=== PATIENT | female | born 2000 | race Caucasian/White ===

== ENCOUNTER → 2020-10-07 15:24 | Outpatient (CLI) | payer MEDICAID, SELFPAY ==
[2018-10-12 10:09] VITALS: BMI 29.8
[2020-10-07 18:27] LABS: Hemoglobin A1c 5.2 % (3.8-5.6)
== END ==
PROVIDERS: PCP Family Medicine; Referring Provider Dermatology; Visit Provider Dermatology
DX: L30.9 Dermatitis, unspecified (principal)
CPT/HCPCS: 36415; 83036

== ENCOUNTER 2024-06-19 14:30 | Outpatient (CLI) | payer OTHER, SELFPAY ==
[2024-06-19 16:49] VITALS: BMI 41.9
[2024-06-19 16:56] VITALS: PULSE 121; RESP 16; TEMP 37; O2SAT 98
[2024-06-19 16:58] VITALS: BP 164/90; PULSE 112
[2024-06-19 16:59] VITALS: BP 143/71; PULSE 106
--- NOTE | 2024-06-19 18:23 | OB.TRI.NOTE ---
HPI - General General Date of Admission: 06/19/24 Date of Service: 06/19/24 Chief Complaint: bleeding HPI Narrative BEATRIZ OLSEN, is a 24 F who presents blood in toilet and with wiping x 1 at 1600. No pain no continued bleeding. No blood on spec exam. Likely ruptured hemorrhoid. Cat I tracing and closed cervix. Has appt on Tuesday. Maternal Data Information Gestational age: 34+3 [facility] Medical History (Updated 06/19/24 @ 18:[address] Lianet Jarquin MD) Headaches, cluster Home Medications ?Medication ?Instructions ?Recorded ?Last Taken ?Type aspirin 81 mg capsule 162 mg PO DAILY 06/19/24 06/18/24 21:00 History 162 mg vit no.95-ferrous 1 tab PO DAILY 06/19/24 06/18/24 21:00 History fumarate 28 mg-folic acid 800 mcg 1 TAB tablet ( Multivitamins) Allergy/AdvReac Type Severity Reaction Status Date / Time No Known Allergies Allergy Verified 06/19/24 16:47 Family History Other Depression Hypertension Thyroid disorder Social History Smoking Status: Never smoker alcohol intake: never substance use type: does not use what type of physical activity do you participate in: yoga frequency: 1-2 times per week Physical Exam External Female Exam: normal appearance of the urethra Speculum Exam - Vagina: Negative for vaginal lesion, vaginal bleeding or vaginal discharge Speculum Exam - Cervix: Negative for cervical os open or cervical bleeding Psych mental status grossly normal NST FHR Rate Baby A Variability:: Moderate Accelerations:: 15 x 15 Decelerations:: None NST Reactive:: Yes FHR Category:: Category I Uterine Activity:: none Assessment & Plan (1) Vaginal bleeding during : (2) 34 weeks gestation of : PLAN: No bleeding found
== END 2024-06-19 18:25 | disposition home or self-care (01) ==
LOC: WPOUT 16:36 → WP 16:37
PROVIDERS: PCP Family Medicine; Referring Provider Obstetrics & Gynecology; Visit Provider Obstetrics & Gynecology
DX: O46.93 Antepartum hemorrhage, unspecified, third trimester (principal); Z79.82 Long term (current) use of aspirin; Z3A.34 34 weeks gestation of pregnancy
CPT/HCPCS: 59025; 59050; 99221; G0378

== ENCOUNTER 2024-07-10 19:18 | Inpatient (IN) | payer OTHER, SELFPAY ==
[2024-07-10 19:13] VITALS: BMI 41.8
[2024-07-10 19:34] VITALS: BP 144/84; PULSE 121; RESP 16; TEMP 36.8
[2024-07-10 19:50] LABS: Absolute Lymphocyte Count 1.59 X10^3/uL (0.83-4.51); Absolute Neutrophil Count 6.3 X10^3/uL (2.0-7.7); Basophil# 0.02 X10^3/uL; Basophil% 0.2 % (0-1); Eosinophil# 0.05 X10^3/uL; Eosinophils% 0.6 % (0-5); Hematocrit 34.8 % (37-47); Lymphocyte # 1.59 X10^3/ul (0.83-4.51); Lymphocyte % 18.2 % (19-41); Mean Corp Hgb Conc 31.6 g/dL (32-36); Mean Corpuscular Hgb 27.2 pg (27.0-32.0); Mean Corpuscular Volume 86.1 fL (81-99); Mean Platelet Vol. 11.1 fl (6.2-12.0); NRBC Flagged by Analyzer 0.3 % (0-5); Neutrophil # 6.33 X10^3/uL (2.7-7.7); Neutrophil % 72.2 % (47-70); Platelet Count 308 K/mm3 (150-450); RBC Distribution Width SD 43.5 fl (35.1-43.9); Red Blood Count 4.04 M/mm3 (4.2-5.4); White Blood Count 8.8 K/mm3 (4.4-11.0)
[2024-07-10 20:35] LABS: Bedside Glucose 130 mg/dL (74-106)
[2024-07-10] MEDS: Lactated Ringers 1,000 ML 50 ML IV (20:35)
[2024-07-10] MEDS: Oxytocin 15 Units/NS 250ml 15 UNITS/250 ML IV.SOLN 2 UNITS IV (20:42)
--- NOTE | 2024-07-10 20:46 | HP.PCM.OB_ITS ---
HPI - General General Date of Admission: 07/10/24 Date of Service: 07/10/24 Chief Complaint: preeclampsia HPI Narrative BEATRIZ OLSEN, is a 24 F who presents for induction of labor due to diagnosis of preeclampsia. Blood pressures have been mildly elevated during much of her . She has no diagnosis of chronic hypertension but there is a suspicion that she may have underlying chronic hypertension. She had preeclampsia labs yesterday and was found to have an elevated protein curried to creatinine ratio. Last week the ratio was normal. She denies any headache or visual changes. She has had good movement. No regular contractions. No gross vaginal bleeding or leaking of fluid. has been complicated to date by maternal obesity and her prepregnancy BMI was 37.8 She is also had gestational diabetes that is been fairly well-controlled but her fasting blood sugars have been trending up over the last couple of weeks. Maternal Data Information Final DAVID: 07/28/24 Gestational age: 37 3/7 [facility] Medical History (Updated 07/10/24 @ 20:[address] Tarah Rosas MD) Pre-eclampsia Gestational diabetes Headaches, cluster Home Medications ?Medication ?Instructions ?Recorded ?Last Taken ?Type aspirin 81 mg capsule 162 mg PO DAILY 06/19/24 07/10/24 08:00 History vit no.95-ferrous 1 tab PO DAILY supplement 06/19/24 07/09/24 08:00 History fumarate 28 mg-folic acid 800 mcg tablet ( Multivitamins) Allergy/AdvReac Type Severity Reaction Status Date / Time No Known Allergies Allergy Verified 07/10/24 19:53 Family History Other Depression Hypertension Thyroid disorder Social History Smoking Status: Never smoker alcohol intake: never substance use type: does not use what type of physical activity do you participate in: yoga frequency: 1-2 times per week History Elective abortions Hx Para 0 Spontaneous abortions Hx # Term Pregnancies Ectopic pregnancies Hx # Pregnancies Multiple births # of living children ROS Constitutional Constitutional: Denies fatigue, fever(s) or malaise Eyes Eyes: Denies change in vision ENT HEENT: Denies dizziness or headache(s) Cardiovascular Cardiovascular: Denies chest pain, dyspnea or lightheadedness Respiratory/Chest Respiratory/Chest: Denies cough or dyspnea Gastrointestinal Gastrointestinal: Denies change in bowel habits Genitourinary Genitourinary: Denies burning urination or genital lesions Integumentary Integumentary: Denies rash Neurologic Neurologic: Denies confusion, dizziness, headache(s), numbness or weakness Vital Signs Vital Signs Vital Signs: 07/10/24 19:34 07/10/24 19:34 07/10/24 19:34 Temperature Temperature Source Temporal Pulse Rate 121 H Respiratory Rate Blood Pressure 144/84 H BP Systolic 144 BP Diastolic 84 07/10/24 19:34 07/10/24 19:34 Temperature 98.2 F Temperature Source Pulse Rate Respiratory Rate 16 Blood Pressure BP Systolic BP Diastolic Weight Weight: 117.7 kg Body Mass Index (BMI) 41.8 Physical Exam Narrative 1+ edema, 2+ DTrs, no clonus Const alert and no apparent distress General Appearance: cooperative HEENT normocephalic Resp normal respiratory effort Cardio regular rate GI soft to palpation GI Narrative: gravid, nontender, appropriate for gestational age Extremity no calf tenderness General Extremity: edema Skin no wounds Rashes: No rashes noted Psych activity/motor behavior normal Labs Labs Labs: Blood Type O POSITIVE Antibody Screen NEGATIVE Hct 34.8 % (37-47) L Hgb 11.0 g/dL (12.0-15.0) L Syphilis Total Ab Pending Assessment & Plan (1) Pre-eclampsia: QUALIFIERS: Trimester: third trimester Qualified Code(s): O14.93 - Unspecified pre-eclampsia, third trimester PLAN: High risk [place] parous patient at 37-3/7 weeks gestation with diagnosis of preeclampsia without severe features. Will monitor blood pressures closely. Estimated weight is approximately 4000 g and pelvis clinically adequate to expect vaginal delivery. Patient cervix is 3-1/2 cm, 60% effaced, -2 station. Head is well applied. At the posterior and medium consistency. Will initiate Pitocin induction of labor. May have routine pain control measures as needed and as indicated. Will monitor blood sugars and blood pressures and initiate treatments as needed. (2) 37 weeks gestation of : (3) Gestational diabetes, diet controlled: QUALIFIERS: Trimester: third trimester Qualified Code(s): O24.410 - Gestational diabetes mellitus in , diet controlled (4) Maternal obesity syndrome in third trimester:
[2024-07-10 20:48] VITALS: BP 136/69; PULSE 118; RESP 16; O2SAT 98
[2024-07-10 22:03] LABS: Bedside Glucose 104 mg/dL (74-106)
[2024-07-10 22:22] VITALS: BP 121/72; PULSE 100; RESP 16; TEMP 36.2
[2024-07-10 23:07] LABS: Bedside Glucose 90 mg/dL (74-106)
[2024-07-10 23:08] LABS: Syphilis Antibodies Non-reactive
[2024-07-10 23:42] VITALS: BP 112/67; PULSE 91; RESP 16
[2024-07-11] VITALS (57 sets, daily range): BP systolic 104–142; BP diastolic 55–80; PULSE 80–211; RESP 16; TEMP 36.3–37.2; O2SAT 90–100
[2024-07-11 03:07] LABS: Bedside Glucose 107 mg/dL (74-106)
[2024-07-11] MEDS: Acetaminophen 500 MG Tablet PO ×3 (05:14→19:31)
[2024-07-11 07:04] LABS: Bedside Glucose 107 mg/dL (74-106)
--- NOTE | 2024-07-11 09:06 | PCM.PN.OB ---
Subjective Subjective AROM for clear fluid. IUPC and FSE placed. 480/-2 Objective Data Objective Data Vital Signs: Vital Signs Temp Pulse Resp BP Pulse Ox 97.6 F L 80 16 139/78 H 97 07/11/24 07:39 07/11/24 07:41 07/11/24 07:39 07/11/24 07:40 07/11/24 07:40 Weight: 117.7 kg Body Mass Index (BMI) 41.8 Intake & Output: Intake and Output for Last 24 Hours 07/09/24 07/10/24 07/11/24 23:59 23:59 23:59 Intake Total 12.9 / 12.9 67.77 / 67.77 Output Total 500 / 500 Balance 12.9 / 12.9 -432.23 / -432.23 Lab / Micro Data 07/10/24 19:30 Labs: Laboratory Results - last 24 hr 07/10/24 19:30: WBC 8.8, RBC 4.04 L, Hgb 11.0 L, Hct 34.8 L, MCV 86.1, MCH 27.2, MCHC 31.6 L, RDW Std Deviation 43.5, RDW Coeff of Jai 14.0, Plt Count 308, MPV 11.1, Immature Gran % (Auto) 0.800, Neut % (Auto) 72.2 H, Lymph % (Auto) 18.2 L, Grant % (Auto) 8.0, Eos % (Auto) 0.6, Baso % (Auto) 0.2, Absolute Neuts (auto) 6.3, Absolute Lymphs (auto) 1.59, Nucleated RBC % 0.3, Syphilis Total Ab Non-reactive, Blood Type O POSITIVE, Antibody Screen NEGATIVE 07/10/24 20:14: POC Glucose 130 H 07/10/24 21:32: POC Glucose 104 07/10/24 22:29: POC Glucose 90 07/11/24 02:31: POC Glucose 107 H 07/11/24 04:55: POC Glucose 107 H Assessment & Plan (1) Maternal obesity syndrome in third trimester: (2) Pre-eclampsia: QUALIFIERS: Trimester: third trimester Qualified Code(s): O14.93 - Unspecified pre-eclampsia, third trimester (3) 37 weeks gestation of : (4) Gestational diabetes, diet controlled: QUALIFIERS: Trimester: third trimester Qualified Code(s): O24.410 - Gestational diabetes mellitus in , diet controlled
[2024-07-11 09:43] LABS: Bedside Glucose 98 mg/dL (74-106)
[2024-07-11] MEDS: Lactated Ringers 1,000 ML 999 ML IV (11:10)
[2024-07-11] MEDS: Lactated Ringers 1,000 ML 200 ML IV ×3 (12:16→22:11)
[2024-07-11] MEDS: fentaNYL-bupivacaine (epidural) 100 ML BAG EPIDURAL ×3 (12:16→21:43)
[2024-07-11] MEDS: Ondansetron 4 MG/2 ML Vial IV ×2 (13:30→18:07)
[2024-07-11 15:08] LABS: Bedside Glucose 69 mg/dL (74-106)
[2024-07-11 15:08] LABS: Bedside Glucose 67 mg/dL (74-106)
[2024-07-11 15:08] LABS: Bedside Glucose 98 mg/dL (74-106)
[2024-07-11 16:24] LABS: Bedside Glucose 98 mg/dL (74-106)
[2024-07-11 17:55] LABS: Bedside Glucose 82 mg/dL (74-106)
[2024-07-11 18:38] LABS: Bedside Glucose 75 mg/dL (74-106)
[2024-07-11 19:46] LABS: Bedside Glucose 71 mg/dL (74-106)
[2024-07-11] MEDS: Oxytocin 15 Units/NS 250ml 15 UNITS/250 ML IV.SOLN 20 UNITS IV (20:58)
[2024-07-11 20:59] LABS: Bedside Glucose 80 mg/dL (74-106)
[2024-07-11 21:58] LABS: Bedside Glucose 88 mg/dL (74-106)
[2024-07-11 23:01] LABS: Bedside Glucose 94 mg/dL (74-106)
[2024-07-12] VITALS (31 sets, daily range): BP systolic 111–143; BP diastolic 62–90; PULSE 88–135; RESP 15–25; TEMP 36.1–37.4; O2SAT 95–100
[2024-07-12 00:26] LABS: Bedside Glucose 104 mg/dL (74-106)
[2024-07-12] MEDS: Ondansetron 4 MG/2 ML Vial IV (01:24)
--- NOTE | 2024-07-12 02:32 | PCM.PN.OB ---
Subjective Subjective Patient complete and pushing for 2.5 hours. Very little progress with adequate maternal effort. Cat I-II. Discussed with patient R/B/A to primary c/s. She is agreeable. ANcef and azithromycin ordered. Objective Data Objective Data Vital Signs: Vital Signs Temp Pulse Resp BP Pulse Ox 98.7 F 88 16 117/77 99 07/12/24 02:17 07/12/24 01:06 07/12/24 02:17 07/12/24 02:18 07/12/24 01:06 Weight: 117.7 kg Body Mass Index (BMI) 41.8 Intake & Output: Intake and Output for Last 24 Hours 07/10/24 07/11/24 07/12/24 23:59 23:59 23:59 Intake Total 12.9 / 12.9 3953.44 / 3953.44 Output Total 1300 / 1300 600 / 600 Balance 12.9 / 12.9 2653.44 / 2653.44 -600 / -600 Lab / Micro Data 07/10/24 19:30 Labs: Laboratory Results - last 24 hr 07/11/24 02:31: POC Glucose 107 H 07/11/24 04:55: POC Glucose 107 H 07/11/24 09:15: POC Glucose 98 07/11/24 13:19: POC Glucose 67 L 07/11/24 13:45: POC Glucose 69 L 07/11/24 14:39: POC Glucose 98 07/11/24 15:56: POC Glucose 98 07/11/24 17:18: POC Glucose 82 07/11/24 18:14: POC Glucose 75 07/11/24 19:21: POC Glucose 71 L 07/11/24 20:33: POC Glucose 80 07/11/24 21:34: POC Glucose 88 07/11/24 22:41: POC Glucose 94 07/11/24 23:37: POC Glucose 104 Assessment & Plan (1) Maternal obesity syndrome in third trimester: (2) Gestational diabetes, diet controlled: QUALIFIERS: Trimester: third trimester Qualified Code(s): O24.410 - Gestational diabetes mellitus in , diet controlled (3) 37 weeks gestation of : (4) Pre-eclampsia: QUALIFIERS: Trimester: third trimester Qualified Code(s): O14.93 - Unspecified pre-eclampsia, third trimester (5) Failed induction: QUALIFIERS: Failed induction of labor type: medical Qualified Code(s): O61.0 - Failed medical induction of labor PLAN: Plan Proceede with primary c-sectiton
[2024-07-12] MEDS: Acetaminophen 500 MG Tablet PO (02:37)
[2024-07-12] MEDS: Sodium Citrate/Citric Acid 30 ML UDC PO (02:38)
[2024-07-12 02:52] LABS: Bedside Glucose 101 mg/dL (74-106)
[2024-07-12 02:52] LABS: Bedside Glucose 103 mg/dL (74-106)
[2024-07-12 02:52] LABS: Bedside Glucose 88 mg/dL (74-106)
[2024-07-12] MEDS: Cefazolin 2 GM in 0.9% Normal Saline (100mL Bag) 100 ML IV (03:02)
[2024-07-12] MEDS: Azithromycin 500 MG in Dextrose 5%-Water (250mL Bag) 250 ML 250 MG IV (03:41)
--- NOTE | 2024-07-12 04:01 | EX.PCM.OBRPT ---
Assessment & Plan (1) Failed induction: QUALIFIERS: Failed induction of labor type: medical Qualified Code(s): O61.0 - Failed medical induction of labor (2) Maternal obesity syndrome in third trimester: (3) Gestational diabetes, diet controlled: QUALIFIERS: Trimester: third trimester Qualified Code(s): O24.410 - Gestational diabetes mellitus in , diet controlled (4) 37 weeks gestation of : (5) Pre-eclampsia: QUALIFIERS: Trimester: third trimester Qualified Code(s): O14.93 - Unspecified pre-eclampsia, third trimester (6) S/P : Maternal Data Information Final DAVID: 07/28/24 Gestational age: 37+5 Details Operative Information Date of Procedure: 07/12/24 Pre-Operative Diagnosis: IOL for GDM and Pre E Post-Operative Diagnosis: Same Indications for : Arrrest of Descent Indications Narrative: Complete and pushing for 2.5 hours without descent beyond 0 station Classification: ARISTEO Procedure Type: low transverse banking management consulting manager #1: Stacie Vera Type of Anesthesia: Epidural Anesthesiologist: Zac Russ Antibiotic Given: Ancef 2 grams IV x1 and Zithromax 500 mg/5 mL X1 Drain: [place] to straight drain Estimated Blood Loss: 800 cc Procedure Start Time: 03:18 Procedure Stop Time: 03:56 Time of Delivery: 03:25 Findings Description of Procedure: Patient taken to the OR with epidural and [place] in place. Vaginal prep was performed. Epidural was dosed for . She was prepped and draped in the normal sterile fashion. A Pfannenstiel incision was made and carried down to the underlying fascia. The fascia was incised in the midline and extended laterally. The fascia was dissected from the muscle. The muscles divided in the midline. The peritoneum was entered bluntly and extended manually. A bladder blade was placed. A bladder flap was created. A low transverse incision was made and extended bluntly. The head was elevated to the incision. The shoulders delivered easily. There was a cord around the neck x 1. The infant cried upon delivery. The cord was cut and clamped. The placenta was delivered with myriam traction. The uterus was exteriorized and cleared of all clot and debris. The incision was repaired with 1-0 Vicryl x 2. The uterus was returned the abdomen, The gutter cleared of all clots. The peritoneum was closed with 2-0 Monocryl. The fascia was closed with 1-0 Vicryl. The subcutaneous tissue was reapproximated with 2-0 Monocryl The skin was closed with 4-0. I performed the major parts of the procedure with the RFNA assisting with retraction and closing the skin. The sponge lap and needle count was correct x 2 Presentation: Positive for Vertex Amniotic Membrane Rupture Type: Artificial Time of Membrane Ruptured: 0830 Amniotic Fluid Description: Clear Placental Delivery Description: Spontaneous and Expressed Placenta Disposition: [facility] Cord Vessel Description: 3 Vessels Cord Entanglement: Around neck x 1, loose A Gender: Female (1 minute): 8 (5 minute): 9 Delayed Cord Clamping: Yes
[2024-07-12] MEDS: Oxytocin 15 Units/NS 250ml 15 UNITS/250 ML IV.SOLN 83 UNITS IV (04:15)
[2024-07-12] MEDS: Ketorolac 30 MG/ML Syringe IV ×4 (04:18→22:58)
--- NOTE | 2024-07-12 05:54 | NURSING ---
pt epidural catheter removed. blue tip intact
--- NOTE | 2024-07-12 06:05 | NURSING ---
pt recovery BGT was 157. pt reports eating angely crackers prior to poc
[2024-07-12 06:21] LABS: Bedside Glucose 157 mg/dL (74-106)
[2024-07-12] MEDS: Lactated Ringers 1,000 ML 100 ML IV (07:10)
[2024-07-12] MEDS: Acetaminophen 500 MG Tablet 1000 MG PO ×3 (09:32→21:31)
[2024-07-12] MEDS: Senna/Docusate Sodium 1 Tablet PO (09:32)
[2024-07-12] MEDS: SimETHICONE 80 MG Chewable Tablet PO (10:31)
--- NOTE | 2024-07-12 10:50 | NURSING ---
Patient feeding infant until this time. Tachycardia noted. Office notified. patient ambulated without difficulty. Bleeding appropriate.
[2024-07-12] MEDS: Enoxaparin 40 MG/0.4 ML Syringe SC (15:22)
[2024-07-12] MEDS: 0.9% Saline Lock 10 ML Syringe IV (16:42)
[2024-07-13 01:30] VITALS: PULSE 117; RESP 18; O2SAT 98
[2024-07-13 03:17] VITALS: BP 144/81; PULSE 105; RESP 16; TEMP 36.6; O2SAT 100
[2024-07-13] MEDS: Enoxaparin 40 MG/0.4 ML Syringe SC ×2 (03:57→16:29)
[2024-07-13] MEDS: Acetaminophen 500 MG Tablet 1000 MG PO ×4 (03:57→22:14)
[2024-07-13] MEDS: oxyCODONE 5 MG Tablet PO ×4 (03:58→19:52)
[2024-07-13] MEDS: Ibuprofen 600 MG Tablet PO ×3 (05:51→18:09)
[2024-07-13 05:54] LABS: Hematocrit 26.9 % (37-47); Hemoglobin 8.3 g/dL (12.0-15.0); Mean Corp Hgb Conc 30.9 g/dL (32-36); Mean Corpuscular Hgb 27.6 pg (27.0-32.0); Mean Corpuscular Volume 89.4 fL (81-99); Mean Platelet Vol. 10.7 fl (6.2-12.0); Platelet Count 257 K/mm3 (150-450); RBC Distribution Width CV 14.8 % (11.6-14.6); RBC Distribution Width SD 47.2 fl (35.1-43.9); Red Blood Count 3.01 M/mm3 (4.2-5.4); White Blood Count 13.5 K/mm3 (4.4-11.0)
[2024-07-13 06:40] LABS: Bedside Glucose 115 mg/dL (74-106)
--- NOTE | 2024-07-13 06:58 | PCM.PN.CNM ---
Subjective Subjective Patient seen at bedside. Denies headache, vision changes, SOB or CP. Ambulating and voiding. Passing flatus. Lochia remains moderate. Objective Data Objective Data Vital Signs: Vital Signs Temp Pulse Resp BP Pulse Ox O2 Del Method 98 F 105 H 16 144/81 H 100 Room Air 07/13/24 03:17 07/13/24 03:17 07/13/24 03:17 07/13/24 03:17 07/13/24 03:17 07/13/24 03:17 Oxygen Delivery Method Room Air Weight: 259 lb 7.745 oz Body Mass Index (BMI) 41.8 Intake & Output: Intake and Output for Last 24 Hours 07/11/24 07/12/24 07/13/24 23:59 23:59 23:59 Intake Total 3953.44 / 3953.44 2566.00 / 2566.00 Output Total 1300 / 1300 2850 / 2850 Balance 2653.44 / 2653.44 -284.00 / -284.00 Lab / Micro Data Attestation: I reviewed the patient's lab results. 07/13/24 05:41 Labs: Laboratory Results - last 24 hr 07/13/24 05:41: WBC 13.5 H, RBC 3.01 L, Hgb 8.3 L, Hct 26.9 L, MCV 89.4, MCH 27.6, MCHC 30.9 L, RDW Std Deviation 47.2 H, RDW Coeff of Jai 14.8 H, Plt Count 257, MPV 10.7 07/13/24 05:49: POC Glucose 115 H ROS Eyes Eyes: Denies blurry vision, spots in vision or tunnel vision ENT HEENT: Denies dizziness or headache(s) Cardiovascular Cardiovascular: Reports systems reviewed and no addt'l complaints, except as documented, dizziness and dyspnea Respiratory/Chest Respiratory/Chest: Reports systems reviewed and no addt'l complaints, except as documented Gastrointestinal Gastrointestinal: Reports systems reviewed and no addt'l complaints, except as documented Genitourinary Genitourinary: Reports systems reviewed and no addt'l complaints, except as documented Neurologic Neurologic: Denies abnormal speech, dizziness, headache(s), syncope or vertigo Psychiatric Psychiatric: Reports systems reviewed and no addt'l complaints, except as documented Physical Exam Const alert and no apparent distress General Appearance: cooperative Orientation / Consciousness: awake, oriented to person and oriented to place Exam Limitations: no limitations HEENT normocephalic Eyes General Eye: normal appearance of both eyes Neck full ROM Chest Chest: symmetrical chest wall rise Resp normal respiratory effort, normal air movement and clear to auscultation bilaterally Auscultation: clear to auscultation bilaterally Cardio regular rate and regular rhythm GI normal to inspection, nondistended, normoactive bowel sounds Uterus Palpation: uterus fundus firm Extremity full ROM and no calf tenderness Skin no rashes or lesions noted Neuro oriented x3 Psych mental status grossly normal and activity/motor behavior normal Assessment & Plan (1) S/P : (2) Failed induction: QUALIFIERS: Failed induction of labor type: medical Qualified Code(s): O61.0 - Failed medical induction of labor (3) Maternal obesity syndrome in third trimester: (4) Gestational diabetes, diet controlled: QUALIFIERS: Trimester: third trimester Qualified Code(s): O24.410 - Gestational diabetes mellitus in , diet controlled (5) Pre-eclampsia: QUALIFIERS: Trimester: third trimester Qualified Code(s): O14.93 - Unspecified pre-eclampsia, third trimester (6) Anemia due to blood loss, acute: (7) Care and examination of lactating mother: PLAN: Plan HGB 8.3 down from 11.0 Start Ferrous sulfate PO daily Pain control support Blood pressures- no severe ranges Tachycardic at times- patient asymptomatic Increase ambulation Anticipate discharge home tomorrow
--- NOTE | 2024-07-13 07:03 | DS.PCM_ITS ---
Providers Date of Admission: 07/10/24 Primary Care Physician: Dr. Lucas Mosquera MD Reason For Visit: C SECTION Diagnosis Discharge Diagnosis (1) S/P : Status: Acute Code(s): Z98.891 - History of uterine scar from previous surgery (2) Failed induction: Status: Acute Code(s): O61.9 - Failed induction of labor, unspecified Qualifiers: Failed induction of labor type: medical Qualified Code(s): O61.0 - Failed medical induction of labor (3) Maternal obesity syndrome in third trimester: Status: Acute Code(s): O99.213 - Obesity complicating , third trimester (4) Gestational diabetes, diet controlled: Status: Acute Code(s): O24.410 - Gestational diabetes mellitus in , diet controlled Qualifiers: Trimester: third trimester Qualified Code(s): O24.410 - Gestational diabetes mellitus in , diet controlled (5) Pre-eclampsia: Status: Acute Code(s): O14.90 - Unspecified pre-eclampsia, unspecified trimester Qualifiers: Trimester: third trimester Qualified Code(s): O14.93 - Unspecified pre- eclampsia, third trimester (6) Anemia due to blood loss, acute: Status: Acute Code(s): D62 - Acute posthemorrhagic anemia (7) Care and examination of lactating mother: Status: Acute Code(s): Z39.1 - Encounter for care and examination of lactating mother Plan HGB 8.3 down from 11.0 Start Ferrous sulfate PO daily Pain control support Blood pressures- no severe ranges Tachycardic at times- patient asymptomatic Increase ambulation Anticipate discharge home tomorrow Medications at Discharge Home Medications vit no.95-ferrous fumarate 28 mg-folic acid 800 mcg tablet ( Multivitamins) 1 tab PO DAILY supplement 06/19/24 docusate sodium 100 mg capsule (Colace) 100 mg PO BID constipation #30 caps 07/15/24 ferrous sulfate 325 mg (65 mg iron) tablet 325 mg PO QODAY #30 tabs 07/15/24 ibuprofen 600 mg tablet 600 mg PO Q6H PRN pain #30 tabs 07/15/24 labetalol 100 mg tablet 100 mg PO BID #60 tabs 07/15/24 oxycodone 5 mg capsule 5 mg PO Q6H PRN pain 7 days #7 caps 07/15/24 Weight / BMI Weight Weight: 259 lb 7.745 oz Body Mass Index (BMI) 41.8 ABG / Lab / Microbiology Data 07/13/24 05:41 Laboratory: Laboratory Results - last 24 hr 07/13/24 05:41: WBC 13.5 H, RBC 3.01 L, Hgb 8.3 L, Hct 26.9 L, MCV 89.4, MCH 27.6, MCHC 30.9 L, RDW Std Deviation 47.2 H, RDW Coeff of Jai 14.8 H, Plt Count 257, MPV 10.7 07/13/24 05:49: POC Glucose 115 H Meaningful Use Info Meaningful Use Meaningful Use Diagnoses (Choose all that apply): None applicable Ischemic Stroke Statin Dosing Therapy Reference: STATIN DOSE THERAPY REFERENCE: * Patients > 75 years receive moderate or high dose statin therapy. * Patients 75 years or YOUNGER should receive HIGH intensity statin dose unless contraindicated. You will be required to document reason for non-treatment if statin daily dose does not meet guidelines. HIGH DOSE STATIN THERAPY DAILY Atorvastatin > than or = to 40 mg Rosuvastatin > than or = to 20 mg Amlodipine + Atorvastatin > than or = to 2.5/40 mg Ezetimibe + Simvastatin 10/80 mg Simvastatin 80mg Discharge Plan Admission Admit Date/Time: 07/10/24 19:18 Primary Reason for Your Visit: delivery Attending Provider: Lianet Jarquin Primary Care Provider: Lucas Mosquera Instructions Patient Instructions: After a Discharge Orders/Prescriptions Prescriptions: New ibuprofen 600 mg tablet 600 mg PO Q6H PRN (Reason: pain) Qty: 30 0RF oxycodone 5 mg capsule 5 mg PO Q6H PRN (Reason: pain) 7 Days Qty: 7 0RF docusate sodium [Colace] 100 mg capsule 100 mg PO BID Qty: 30 0RF labetalol 100 mg tablet 100 mg PO BID Qty: 60 0RF ferrous sulfate 325 mg (65 mg iron) tablet 325 mg PO QODAY Qty: 30 0RF Continued PNV cmb#95-ferrous fumarate-FA [ Multivitamins] 28 mg iron- 800 mcg tablet 1 tab PO DAILY Discontinued aspirin 81 mg capsule 162 mg PO DAILY Referrals / Follow Up: Lucas Mosquera MD [Primary Care Provider] - Disposition Disposition (needs filled in before D/C Order can be placed): Home, Self Care
[2024-07-13 07:45] VITALS: BP 142/82; PULSE 105; RESP 18; TEMP 36.6; O2SAT 96
[2024-07-13] MEDS: Senna/Docusate Sodium 1 Tablet PO (09:33)
[2024-07-13] MEDS: Ferrous Sulfate 325 MG Tablet PO ×2 (11:31→18:09)
[2024-07-13 14:00] VITALS: BP 116/76; PULSE 102; RESP 16; TEMP 36.8; O2SAT 99
[2024-07-13 19:56] VITALS: BP 143/82; PULSE 113; RESP 16; TEMP 36.6; O2SAT 100
[2024-07-14] MEDS: Ibuprofen 600 MG Tablet PO ×5 (00:22→23:42)
[2024-07-14 02:50] VITALS: BP 129/83; PULSE 111; RESP 16; TEMP 36.8; O2SAT 98
[2024-07-14] MEDS: Enoxaparin 40 MG/0.4 ML Syringe SC ×2 (04:37→17:03)
[2024-07-14] MEDS: Acetaminophen 500 MG Tablet 1000 MG PO ×4 (04:38→22:23)
[2024-07-14 07:50] VITALS: BP 131/80; PULSE 106; RESP 16; TEMP 36.8; O2SAT 96
--- NOTE | 2024-07-14 07:53 | PCM.PN.OB ---
Subjective Subjective Patient is doing well. Pain is controlled. She is ambulating and voiding without difficulty. Tolerating a diet without nausea or vomiting. She reports yesterday feeling lightheaded with ambulation initially, but that has resolved. She is now ambulating without lightheadedness or dizziness. Denies chest pain or shortness of breath. Lochia has been normal. She had a small bowel movement this morning. Objective Data Objective Data Vital Signs: Vital Signs Temp Pulse Resp BP Pulse Ox O2 Del Method 98.3 F 111 H 16 129/83 H 98 Room Air 07/14/24 02:50 07/14/24 02:50 07/14/24 02:50 07/14/24 02:50 07/14/24 02:50 07/14/24 02:50 Oxygen Delivery Method Room Air Weight: 259 lb 7.745 oz Body Mass Index (BMI) 41.8 Intake & Output: Intake and Output for Last 24 Hours 07/12/24 07/13/24 07/14/24 23:59 23:59 23:59 Intake Total 2566.00 / 2566.00 Output Total 2850 / 2850 Balance -284.00 / -284.00 Lab / Micro Data 07/13/24 05:41 Physical Exam Const alert and no apparent distress General Appearance: comfortable HEENT normocephalic Resp normal respiratory effort GI soft to palpation and non-distended GI Narrative: ATTP, dressing c/d/i Extremity no calf tenderness Extremity Narrative: 1+ edema bilaterally Neuro Neuro Narrative: Patellar reflexes 2+ Assessment & Plan (1) Anemia due to blood loss, acute: PLAN: Asymptomatic Continue oral iron (2) S/P : PLAN: POD#2 s/p section. Pain controlled. . Possible discharge tomorrow. (3) Care and examination of lactating mother: (4) Pre-eclampsia: QUALIFIERS: Trimester: third trimester Qualified Code(s): O14.93 - Unspecified pre-eclampsia, third trimester PLAN: Bp normal to occasional mild. No pre eclampsia symptoms this morning and normal reflexes. Discussed when blood pressure medication is indicated. Will monitor blood pressures today.
[2024-07-14] MEDS: Senna/Docusate Sodium 1 Tablet PO (10:16)
[2024-07-14] MEDS: Ferrous Sulfate 325 MG Tablet PO ×2 (12:01→17:02)
[2024-07-14] MEDS: SimETHICONE 80 MG Chewable Tablet PO (12:01)
[2024-07-14 16:15] VITALS: BP 144/90; PULSE 109; RESP 18; TEMP 36.6; O2SAT 100
[2024-07-14] MEDS: oxyCODONE 5 MG Tablet PO (16:35)
[2024-07-14] MEDS: Labetalol 100 MG Tablet PO (17:02)
[2024-07-14 19:52] VITALS: BP 123/71; PULSE 109; RESP 16; TEMP 36.6; O2SAT 99
[2024-07-15 02:10] VITALS: BP 138/103; PULSE 102; RESP 16; TEMP 36.5; O2SAT 99
[2024-07-15] MEDS: Acetaminophen 500 MG Tablet 1000 MG PO ×2 (04:05→10:51)
[2024-07-15] MEDS: Enoxaparin 40 MG/0.4 ML Syringe SC (04:05)
[2024-07-15] MEDS: Ibuprofen 600 MG Tablet PO ×2 (05:43→12:46)
[2024-07-15 07:54] VITALS: BP 136/95; PULSE 100; RESP 16; TEMP 36.3; O2SAT 100
[2024-07-15 08:00] VITALS: BP 129/87
--- NOTE | 2024-07-15 09:16 | PCM.PN.OB ---
Subjective Subjective pt doing well. pain controlled. denies JOHN or vision changes. ambulating and voiding without difficulty. tolerating a regular diet without nausea or vomiting. denies cp, lightheadedness, dizziness, sob, leg pain. desires discharge. Objective Data Objective Data Vital Signs: Vital Signs Temp Pulse Resp BP Pulse Ox O2 Del Method 97.4 F L 100 16 129/87 H 100 Room Air 07/15/24 07:54 07/15/24 07:54 07/15/24 07:54 07/15/24 08:00 07/15/24 07:54 07/15/24 07:54 Oxygen Delivery Method Room Air Weight: 259 lb 7.745 oz Body Mass Index (BMI) 41.8 Lab / Micro Data 07/13/24 05:41 Physical Exam Const alert and no apparent distress General Appearance: comfortable HEENT normocephalic Resp normal respiratory effort GI soft to palpation and non-distended GI Narrative: ATTP, dressing c/d/i Extremity no calf tenderness Extremity Narrative: Trace edema bilaterally Assessment & Plan (1) Care and examination of lactating mother: (2) Anemia due to blood loss, acute: PLAN: Asymptomatic. Cont oral iron. (3) S/P : PLAN: POD#3 s/p section. Pain controlled. . Discharge instructions reviewed as patient desires discharge. (4) Pre-eclampsia: QUALIFIERS: Trimester: third trimester Qualified Code(s): O14.93 - Unspecified pre-eclampsia, third trimester PLAN: Labetalol 100 mg BID was started yesterday. BP since have been normal. No symptoms of pre eclampsia this morning. Cont home BP monitoring and needs BP check this week in office.
--- NOTE | 2024-07-15 09:20 | DCINST_ITS ---
Discharge Instructions Diet Discharge Diet: No restrictions Activity Discharge Activity: May Drive (once you feel like you are strong enough to slam on a brake or turn a steering wheel sharply) and May Shower May resume sexual activity in: 6 weeks Ice area for (Minutes): 15 Weight Bearing Status: Weight bearing as tolerated Lifting Restrictions: nothing heavier than baby Dressing / Incision Call your doctor if your incision/area has: Continuous Slow Oozing, Sudden Increased Bleeding, Increased Pain/ Swelling, Increased Redness, Foul Smelling Discharge and Swelling at the incision site Call your doctor if you observe: Fever of 101 or Higher, Coldness, Increased Pain, Numbness or Tingling, Change in Color, Inability to urinate, Inability to have a bowel movement, Using more than 1 pad per hour, Shortness of breath, Dizziness, Fainting spells, Swelling in the ankles, Chest pain, Prolonged hiccupping, Increased palpitations (irregular heartbeat), Calf discomfort, Uncontrolled pain and - (Severe headache that will not go away with pain medication) Suture Line Care: Avoid Pulling/Pushing and Avoid Pinching/Bending Remove Dressing in: 2 days Cleanse incision/area with: Soap & Water Follow Up Care Please Follow Up With: Lianet Jarquin MD When: 1 week for incision and blood pressure check 6 weeks for visit Test Results: Test results from this visit will be discussed in further detail at your follow- up appointment, if applicable. Discharge Plan Admission Admit Date/Time: 07/10/24 19:18 Primary Reason for Your Visit: delivery Attending Provider: Lianet Jarquin Primary Care Provider: Lucas Mosquera Instructions Patient Instructions: After a Discharge Orders/Prescriptions Prescriptions: New ibuprofen 600 mg tablet 600 mg PO Q6H PRN (Reason: pain) Qty: 30 0RF oxycodone 5 mg capsule 5 mg PO Q6H PRN (Reason: pain) 7 Days Qty: 7 0RF docusate sodium [Colace] 100 mg capsule 100 mg PO BID Qty: 30 0RF labetalol 100 mg tablet 100 mg PO BID Qty: 60 0RF ferrous sulfate 325 mg (65 mg iron) tablet 325 mg PO QODAY Qty: 30 0RF Continued PNV cmb#95-ferrous fumarate-FA [ Multivitamins] 28 mg iron- 800 mcg tablet 1 tab PO DAILY Discontinued aspirin 81 mg capsule 162 mg PO DAILY Referrals / Follow Up: Lucas Mosquera MD [Primary Care Provider] - Disposition Disposition (needs filled in before D/C Order can be placed): Home, Self Care
--- NOTE | 2024-07-15 09:22 | DS.PCM_ITS ---
Providers Date of Admission: 07/10/24 Date of Discharge: 07/15/24 Primary Care Physician: Dr. Lucas Mosquera MD Reason For Visit: C SECTION Diagnosis Discharge Diagnosis (1) Care and examination of lactating mother: Status: Acute Code(s): Z39.1 - Encounter for care and examination of lactating mother (2) Anemia due to blood loss, acute: Status: Acute Code(s): D62 - Acute posthemorrhagic anemia Plan: Asymptomatic. Cont oral iron. (3) S/P : Status: Acute Code(s): Z98.891 - History of uterine scar from previous surgery Plan: POD#3 s/p section. Pain controlled. . Discharge instructions reviewed as patient desires discharge. (4) Pre-eclampsia: Status: Acute Code(s): O14.90 - Unspecified pre-eclampsia, unspecified trimester Qualifiers: Trimester: third trimester Qualified Code(s): O14.93 - Unspecified pre- eclampsia, third trimester Plan: Labetalol 100 mg BID was started yesterday. BP since have been normal. No symptoms of pre eclampsia this morning. Cont home BP monitoring and needs BP check this week in office. Medications at Discharge Home Medications vit no.95-ferrous fumarate 28 mg-folic acid 800 mcg tablet ( Multivitamins) 1 tab PO DAILY supplement 06/19/24 docusate sodium 100 mg capsule (Colace) 100 mg PO BID constipation #30 caps 07/15/24 ferrous sulfate 325 mg (65 mg iron) tablet 325 mg PO QODAY #30 tabs 07/15/24 ibuprofen 600 mg tablet 600 mg PO Q6H PRN pain #30 tabs 07/15/24 labetalol 100 mg tablet 100 mg PO BID #60 tabs 07/15/24 oxycodone 5 mg capsule 5 mg PO Q6H PRN pain 7 days #7 caps 07/15/24 Hospital Course Operations section Summary of Care Provided Minutes Spent on Discharge: 20 Hospital Course: Pt was admitted for induction of labor given pre eclampsia. She underwent a section for a failed induction. See operative report for details. she was started on Labetalol 100 mg BID for mild range blood pressures. She was discharged on post operative day 3 in good condition with follow up in office. Weight / BMI Weight Weight: 259 lb 7.745 oz Body Mass Index (BMI) 41.8 ABG / Lab / Microbiology Data 07/13/24 05:41 D/C Instructions Discharge Diet: No restrictions May resume sexual activity in: 6 weeks Ice area for (Minutes): 15 Weight Bearing Status: Weight bearing as tolerated Call your doctor if your incision/area has: Continuous Slow Oozing, Sudden Increased Bleeding, Increased Pain/ Swelling, Increased Redness, Foul Smelling Discharge and Swelling at the incision site Call your doctor if you observe: Fever of 101 or Higher, Coldness, Increased Pain, Numbness or Tingling, Change in Color, Inability to urinate, Inability to have a bowel movement, Using more than 1 pad per hour, Shortness of breath, Dizziness, Fainting spells, Swelling in the ankles, Chest pain, Prolonged hiccupping, Increased palpitations (irregular heartbeat), Calf discomfort, Uncontrolled pain and - (Severe headache that will not go away with pain medication) Suture Line Care: Avoid Pulling/Pushing and Avoid Pinching/Bending Cleanse incision/area with: Soap & Water Please Follow Up With: Lianet Jarquin MD When: 1 week for incision and blood pressure check 6 weeks for visit Meaningful Use Info Meaningful Use Meaningful Use Diagnoses (Choose all that apply): None applicable Ischemic Stroke Statin Dosing Therapy Reference: STATIN DOSE THERAPY REFERENCE: * Patients > 75 years receive moderate or high dose statin therapy. * Patients 75 years or YOUNGER should receive HIGH intensity statin dose unless contraindicated. You will be required to document reason for non-treatment if statin daily dose does not meet guidelines. HIGH DOSE STATIN THERAPY DAILY Atorvastatin > than or = to 40 mg Rosuvastatin > than or = to 20 mg Amlodipine + Atorvastatin > than or = to 2.5/40 mg Ezetimibe + Simvastatin 10/80 mg Simvastatin 80mg Discharge Plan Admission Admit Date/Time: 07/10/24 19:18 Primary Reason for Your Visit: delivery Attending Provider: Lianet Jarquin Primary Care Provider: Lucas Mosquera Instructions Patient Instructions: After a Discharge Orders/Prescriptions Prescriptions: New ibuprofen 600 mg tablet 600 mg PO Q6H PRN (Reason: pain) Qty: 30 0RF oxycodone 5 mg capsule 5 mg PO Q6H PRN (Reason: pain) 7 Days Qty: 7 0RF docusate sodium [Colace] 100 mg capsule 100 mg PO BID Qty: 30 0RF labetalol 100 mg tablet 100 mg PO BID Qty: 60 0RF ferrous sulfate 325 mg (65 mg iron) tablet 325 mg PO QODAY Qty: 30 0RF Continued PNV cmb#95-ferrous fumarate-FA [ Multivitamins] 28 mg iron- 800 mcg tablet 1 tab PO DAILY Discontinued aspirin 81 mg capsule 162 mg PO DAILY Referrals / Follow Up: Lucas Mosquera MD [Primary Care Provider] - Disposition Disposition (needs filled in before D/C Order can be placed): Home, Self Care
[2024-07-15] MEDS: oxyCODONE 5 MG Tablet PO (10:50)
[2024-07-15] MEDS: Labetalol 100 MG Tablet PO (10:50)
[2024-07-15] MEDS: Senna/Docusate Sodium 1 Tablet PO (10:51)
[2024-07-15] MEDS: Ferrous Sulfate 325 MG Tablet PO (10:51)
[2024-07-15 14:05] VITALS: BP 146/82; PULSE 100; RESP 16; TEMP 36.2; O2SAT 100
== END 2024-07-15 14:50 | disposition home or self-care (01) | DRG 787 ==
PROVIDERS: Obstetrics & Gynecology; Admitting Provider Obstetrics & Gynecology; PCP Family Medicine; Visit Provider Obstetrics & Gynecology
DX: O11.4 Pre-existing hypertension with pre-eclampsia, complicating childbirth (principal); D62 Acute posthemorrhagic anemia; O24.420 Gestational diabetes mellitus in childbirth, diet controlled; O99.214 Obesity complicating childbirth; Z3A.37 37 weeks gestation of pregnancy; O90.81 Anemia of the puerperium; O26.03 Excessive weight gain in pregnancy, third trimester; O69.81X0 Labor and delivery complicated by cord around neck, without compression, not applicable or unspecified; O61.0 Failed medical induction of labor; O32.4XX0 Maternal care for high head at term, not applicable or unspecified; Z79.82 Long term (current) use of aspirin; Z79.899 Other long term (current) drug therapy; Z37.0 Single live birth
CPT/HCPCS: 36415; 59025; 59050; 82962; 85025; 85027; 86780; 86850; 86900; 86901; 99221; J7120; A4216; G0378; J2405

== ENCOUNTER → 2025-09-12 | Outpatient (CLI) | payer OTHER, SELFPAY ==
[2025-09-14 05:07] LABS: Chlamydia By Nucleic Acid AMP Negative (Negative); Gonococcus By Nucleic Acid AMP Negative (Negative)
== END | disposition home or self-care (01) ==
LOC: LABSPEC 12:02
PROVIDERS: PCP Family Medicine; Referring Provider Nurse Practitioner Family; Visit Provider Nurse Practitioner Family
DX: Z12.4 Encounter for screening for malignant neoplasm of cervix (principal); Z11.3 Encounter for screening for infections with a predominantly sexual mode of transmission; R10.20 Pelvic and perineal pain unspecified side
CPT/HCPCS: 87491; 87591; 88175; G0145

== ENCOUNTER → 2025-09-25 | Outpatient (CLI) | payer OTHER, SELFPAY | END | disposition home or self-care (01) | LOC: LAB 14:02 | PROVIDERS: PCP Family Medicine; Referring Provider Nurse Practitioner Family; Visit Provider Nurse Practitioner Family | DX: Z86.32 Personal history of gestational diabetes (principal); Z68.38 Body mass index [BMI] 38.0-38.9, adult | CPT/HCPCS: 36415; 83036 ==